=== PATIENT | male | born 1960 | race Caucasian/White ===

== ENCOUNTER 2019-02-14 17:33 | Emergency (ER) | payer MEDICAID, OTHER ==
[~2019-02-14] VITALS: Ht 172.7 cm; Wt 79.4 kg
[2019-02-14 17:50] VITALS: Ht 172.7 cm; Wt 79.4 kg
[2019-02-14] MEDS ORDERED: ACETAMINOPHEN 500 MG TAB PO STA (18:16)
[2019-02-14] MEDS ORDERED: KETOROLAC 30 MG INJ IM STA (18:16)
[2019-02-14] MEDS ORDERED: NAPR-985 PO (19:21)
[2019-02-14 19:58] VITALS: BP 143/101; PULSE 59; RESP 18
--- NOTE | 2019-02-14 19:58 | ERD ---
ER Documentation Chief Complaint Chief Complaint pt has right foot pain x 1 month 08/06 denies injury or trauma HPI History of Present Illness: 59 -year-old male with history of hypertension coming in today with complaint of right foot pain. Patient points to right heel wound indicating repeated. Patient has failed extensive, slight. Patient denies injury or trauma. Patient denies any use of therapies at home pain. Denies decreased sensation or paresthesia. At home pharmacological/nonpharmacological treatment for symptoms: DENIES Denies social concerns; Denies recent foreign travel ROS All systems reviewed and are negative except as per history of present illness. Medications Home Meds Active Scripts Naproxen* (Naprosyn*) 500 Mg Tablet, 500 MG PO BID PRN for PAIN AND/OR INFLAMMATION, #30 TAB Prov:DEVEN BEDOYA NP 02/14/19 Allergies Allergies: Coded Allergies: No Known Allergy (Unverified , 02/14/19) PMhx/Soc Medical and Surgical Hx: pt denies Medical Hx, pt denies Surgical Hx Hx Alcohol Use: No Hx Substance Use: No Hx Tobacco Use: No Smoking Status: Never smoker FmHx Family History: No diabetes, No coronary disease Physical Exam Vitals Vital Signs Date Temp Pulse Resp B/P (MAP) Pulse Ox O2 O2 Flow FiO2 Time Delivery Rate 02/14/19 98.0 59 18 143/101 99 Room Air 19:58 (115) 02/14/19 98.6 75 18 153/97 100 17:50 (115) Physical Exam Const: No acute distress Head: Atraumatic Eyes: Normal Conjunctiva ENT: Normal External Ears, Nose and Mouth. Neck: Full range of motion. No meningismus. Resp: Clear to auscultation bilaterally Cardio: Regular rate and rhythm, no murmurs Abd: Soft, non tender, non distended. Normal bowel sounds Skin: No petechiae or rashes Back: No midline or flank tenderness Ext: No cyanosis, or edema. Tenderness to palpation over right heel, neurovascularly intact distally, 2+ pedal pulse. No deformity noted. No ecchymosis. Neur: Awake and alert Psych: Normal Mood and Affect Results 24 hrs Current Medications Medications Dose Sig/Guilherme Start Time Status Last (Trade) Ordered Route PRN Stop Time Admin Dose Reason Admin Ketorolac 30 mg ONCE STAT 02/14/19 DC 4/20/19 Tromethamine IM 18:16 18:22 (Toradol) 02/14/19 18:18 1,000 mg ONCE STAT 02/14/19 DC 02/14/19 Acetaminophen PO 18:16 18:22 (Tylenol 02/14/19 18:18 Tab) Procedures/MDM ED course includes a thorough examination and history. Medications: Ketorolac, acetaminophen Imaging: Right foot x-ray Labs: -- Low suspicion for life-threatening medical emergency. Low suspicion for neurovascular compromise. Low suspicion for orthopedic emergency that requires hospitalization or immediate surgical intervention . Otherwise healthy patient presenting with constellation of symptoms likely representing uncomplicated heel pain as characterized by history, physical exam findings, impression shows and radiologic findings. FOOT X-ray reveals: IMPRESSION: No fracture or dislocation of the right foot. RPTAT: HTAR .Ricky Carrasco MD, MD No respiratory distress, otherwise relatively well appearing and nontoxic. Patient educated on diagnoses, prescriptions, follow-up care, return precautions. Strict return precautions given for worsening condition; questions answered discharge. Disposition for discharge with followup in 2 days with PCP/clinic. Departure Diagnosis: Primary Impression: Heel pain Laterality: right Qualified Codes: M79.671 - Pain in right foot Condition: Stable Patient Instructions: Heel Spur Referrals: COMMUNITY CLINICS YOU HAVE RECEIVED A MEDICAL SCREENING EXAM AND THE RESULTS INDICATE THAT YOU DO NOT HAVE A CONDITION THAT REQUIRES URGENT TREATMENT IN THE EMERGENCY DEPARTMENT. FURTHER EVALUATION AND TREATMENT OF YOUR CONDITION CAN WAIT UNTIL YOU ARE SEEN IN YOUR DOCTORS OFFICE WITHIN THE NEXT 1-2 DAYS. IT IS YOUR RESPONSIBILITY TO MAKE AN APPOINTMENT FOR FOLOW-UP CARE. IF YOU HAVE A PRIMARY DOCTOR --you should call your primary doctor and schedule an appointment IF YOU DO NOT HAVE A PRIMARY DOCTOR YOU CAN CALL OUR PHYSICIAN REFERRAL HOTLINE AT IF YOU CAN NOT AFFORD TO SEE A PHYSICIAN YOU CAN CHOSE FROM THE FOLLOWING FORMERLY [facility] [address] [facility] [address] [facility]. [facility] [address] [facility] [address] [facility]. [facility] [address] [facility]. [facility]. [address] [facility]. [facility] YOU HAVE RECEIVED A MEDICAL SCREENING EXAM AND THE RESULTS INDICATE THAT YOU DO NOT HAVE A CONDITION THAT REQUIRES URGENT TREATMENT IN THE EMERGENCY DEPARTMENT. FURTHER EVALUATION AND TREATMENT OF YOUR CONDITION CAN WAIT UNTIL YOU ARE SEEN IN YOUR DOCTORS OFFICE WITHIN THE NEXT 1-2 DAYS. IT IS YOUR RESPONSIBILITY TO MAKE AN APPOINTMENT FOR FOLOW-UP CARE. IF YOU HAVE A PRIMARY DOCTOR --you should call your primary doctor and schedule and appointment IF YOU DO NOT HAVE A PRIMARY DOCTOR YOU CAN CALL OUR PHYSICIAN REFERRAL HOTLINE AT . IF YOU CAN NOT AFFORD TO SEE A PHYSICIAN YOU CAN CHOSE FROM THE FOLLOWING [facility] INSTITUTIONS: [facility] [address] [place] [address] [facility] [address] [place] [address] [facility] [address] [place] [address] Additional Instructions: Thank you very much for allowing us to participate in your care. Your health and safety is our top priority at [facility]. It is important to read all discharge instructions and education provided in your discharge packet. Call your primary care doctor TOMORROW for an appointment during the next 2-4 days and bring all the information and medications prescribed. Have prescriptions filled and follow precisely the directions on the label. -Naproxen is a anti-inflammatory/pain medication; take this medication daily as prescribed for the next week to help with swelling/inflammation/pain. If the symptoms get worse and your provider is unavailable, return to the Emergency Department immediately. DEVEN BEDOYA NP Feb 14, 2019 19:58 SALUD JUNIOR MD Feb 14, 2019 23:19
== END 2019-02-14 19:58 | disposition home or self-care (01) ==
LOC: FTE 17:33
DX: M79.671 Pain in right foot (principal); I10 Essential (primary) hypertension
CPT/HCPCS: 73630; 96372; J1885; Z7502; Z7610